=== PATIENT | male | born 1955 | race Caucasian/White ===

== ENCOUNTER 2017-10-22 16:51 | Emergency (ER) | payer OTHER, SELFPAY ==
[2017-10-22 16:51] VITALS: BP 167/97; PULSE 60; RESP 14; TEMP 36.7; O2SAT 99; BMI 26.7
--- NOTE | 2017-10-22 17:15 | XR_ITS ---
XR chest 2V HISTORY: ITS.REASON: dizziness; chest pain ORDERING PHYSICIAN: Jacinto Simmons MD PATIENT AGE: 61 years COMPARISON: None available FINDINGS: The cardiomediastinal silhouette and pulmonary vascularity are within normal limits. No lobar consolidation or collapse. Calcified granuloma lobe. There is mild mid thoracic curvature convex left. On the lateral view there is a 15 x 14 mm nodular opacity overlying the aortic arch not readily apparent on the frontal view. This may be due to an overlapping vessel however, one cannot exclude the possibility of pulmonary nodule. The remaining lungs are clear. IMPRESSION: 1.5 cm nodule versus summation artifact overlying the aortic arch on the lateral view. Consider chest CT for evaluation.
--- NOTE | 2017-10-22 17:24 | CT_ITS ---
CT head/brain wo con HISTORY: Dizziness and near syncope ITS.REASON: DIZZINESS ORDERING PHYSICIAN: Jacinto Simmons MD PATIENT AGE: 61 years COMPARISON: None TECHNIQUE: Axial images obtained without contrast. Brain and bone windows reviewed. FINDINGS: No midline shift, mass effect, intracranial hemorrhage, hydrocephalus, or extra-axial fluid collection is evident. The calvarium has an unremarkable appearance. No mastoid effusion. There is complete opacification of the left maxillary sinus with soft tissue density protruding through the medial wall the left maxillary sinus into the nasal cavity. There is opacification of the left mid to anterior ethmoid air cells and minimal mucosal thickening of the sphenoid sinuses... IMPRESSION: 1. No acute intracranial findings. 2. Opacified left maxillary sinus with extension into the left nasal canal. Possible antrochoanal polyp. Consider CT sinuses for more thorough evaluation. Neoplasm not excluded.
[2017-10-22 17:30] LABS: Basophils # 0.1 K/mm3 (0-0.2); Basophils % 0.9 % (0.1-2.0); Eosinophils # 0.4 K/mm3 (0.0-0.4); Eosinophils % 5.3 % (0.1-12.0); Hematocrit 46.2 % (42.0-52.0); Lymphocytes # 1.5 K/mm3 (0.7-4.5); Lymphocytes % 21.8 K/mm3 (10-50); Mean Corpuscular HGB Conc 32.4 g/dL (31.8-35.4); Mean Corpuscular Hemoglobin 29.5 pg (27.0-31.2); Mean Corpuscular Volume 91.3 fl (80-94); Mean Platelet Volume 9.3 fl (7.4-10.4); Monocytes # 0.6 K/mm3 (0.1-1.0); Monocytes % 8.8 % (1.7-9.3); Neutrophils # 4.3 K/mm3 (1.8-7.8); Neutrophils % 63.3 % (37.0-80.0); Platelet Count 163 K/mm3 (142-424); Red Blood Count 5.06 M/mm3 (4.60-6.20); Red Cell Distribution Width 12.1 % (11.5-17.5); White Blood Count 6.8 K/mm3 (4.8-10.8)
[2017-10-22 18:03] LABS: Alanine Aminotransferase 50 U/L (12-78); Albumin/Globulin Ratio 1.1 (1.1-1.8); Alkaline Phosphatase 95 U/L (46-116); Anion Gap 13.1 mEq/L (5-15); Aspartate Amino Transferase 36 U/L (15-37); Bilirubin,Total 0.4 mg/dL (0.2-1.0); Blood Urea Nitrogen 19 mg/dL (7-18); CKMB Relative Index 1.9 U/L (0-4.0); Calcium 9.2 mg/dL (8.5-10.1); Carbon Dioxide 27 mmol/L (21.0-32.0); Chloride 104 mmol/L (98-107); Creatine Kinase 243 U/L (39-308); Creatine Kinase MB 4.6 mg/ml (0.0-3.6); Creatinine Clearance Estimated 107 mL/min (0-300); Creatinine,Serum 0.77 mg/dL (0.70-1.30); Estimated Glomerular Filt Rate 102 ml/min (>60); GFR (African American) 123 ML/MIN (>60); Globulin 3.7 gm/dl (1.3-3.2); Glucose 112 mg/dL (74-106); Potassium 4.1 mmoL/L (3.5-5.1); Sodium 140 mmol/L (136-145); Total Protein,Serum 7.7 gm/dL (6.4-8.2); Troponin I < 0.02 ng/ml (0.00-0.06)
--- NOTE | 2017-10-22 18:11 | HMH.EDDIZZ ---
ED Disposition Clinical Impression: Inner ear disease, Benign paroxysmal positional vertigo Disposition: Home, Self-Care Condition on Discharge: Fair Instructions: Dizziness, Nonvertigo, Vertigo Prescriptions: Meclizine HCl [Antivert 25mg tablet] 25 mg PO TID 20 Days #60 tab Referrals: Freddie Saucedo [Primary Care Provider] - Time of Disposition: 18:33 - Critical Care Critical Care Time: No Attestation: On 10/22/17, the high probability of a clinically significant, sudden or life threatening deterioration of the following system(s) required my full and direct attention, intervention and personal management. The time I documented below is in addition to time spent performing reported procedures but includes the following listed in this critical care notation. Medical Decision Making - Medical Records Medical records reviewed: Yes: I reviewed the patient's medical records. Vital Signs: 10/22/17 16:51 Temperature 98.1 F Temperature Source Oral Pulse Rate [Right Brachial] 60 Respiratory Rate 14 Blood Pressure [Right Arm] 167/97 Blood Pressure Mean [Right Arm] 120 Blood Pressure Source [Right Arm] Automatic Cuff Blood Pressure Position [Right Arm] Sitting 02 Sat by Pulse Oximetry 99 Oxygen Delivery Method Room Air - Lab Data Lab results reviewed: Yes: I reviewed the patient's lab results. Lab Results 10/22/17 17:25: WBC 6.8, RBC 5.06, Hgb 15.0, Hct 46.2, MCV 91.3, MCH 29.5, MCHC 32.4, RDW 12.1, Plt Count 163, MPV 9.3, Neut % (Auto) 63.3, Lymph % (Auto) 21.8, Calvert % (Auto) 8.8, Eos % (Auto) 5.3, Baso % (Auto) 0.9, Neut # (Auto) 4.3, Lymph # (Auto) 1.5, Calvert # (Auto) 0.6, Eos # (Auto) 0.4, Baso # (Auto) 0.1 10/22/17 17:25: Sodium 140, Potassium 4.1, Chloride 104, Carbon Dioxide 27, Anion Gap 13.1, BUN 19 H, Creatinine 0.77, Estimated Creat Clear 107, Estimated GFR 102, Est GFR ( Amer) 123, Glucose 112 H, Calcium 9.2, Total Bilirubin 0.4, AST 36, ALT 50, Alkaline Phosphatase 95, Total Creatine Kinase 243, CK-MB (CK-2) 4.6 H, CK-MB (CK-2) Rel Index 1.9, Troponin I < 0.02, Total Protein 7.7, Albumin 4.0, Globulin 3.7 H, Albumin/Globulin Ratio 1.1 Result diagrams: 10/22/17 17:25 10/22/17 17:25 Orders (Tests/Meds): ORDERS Category Date Time Status CT Request head Stat Cat Scan 10/22/17 17:[address] head/brain wo con Routine Cat Scan 10/22/17 17:24 Taken Chest XR 2 view (NOT portable) [XR chest 2V] Stat Exams 10/22/17 17:15 Taken - CT Data CT Scan: Head Time Received: 18:[address] Reviewed: Yes: I have reviewed the patient's CT results, I discussed the CT results w/the radiologist, I have viewed the radiologist's interpretation Preliminary Findings: Normal/NAD - Harjinder Inquiry Pt receiving controlled substance: No Harjinder was queried for this patient: No Dizzy HPI - General Chief Complaint: Dizziness Stated Complaint: Dizziness Time Seen by Provider: 10/22/17 18:11 Mode of Arrival: Ambulatory Source of Information: Patient Limitations: No Limitations Description of Symptoms (Recalled from ER Triage Doc. 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 no pain at this time - History of Present Illness HPI Narrative: At work this morning he had a dizzy spell and almost fell but no LOC. Had this happen in past and told he had an ear infection. MD complaint: dizziness Timing: sudden onset Description: lightheadedness History of similar episodes: Yes (treated for an ear infection at that time) History of trauma: No Severity: mild Relieving factors: nothing - Related Data Previous Rx's Medication Instructions Recorded Meclizine HCl [Antivert 25mg 25 mg PO TID 20 Days #60 tab 10/22/17 tablet] Allergies Allergy/AdvReac Type Severity Reaction Status Date / Time
[2017-10-22 18:42] VITALS: BP 150/87; PULSE 60; RESP 14; TEMP 36.8; O2SAT 98
== END 2017-10-22 18:45 | disposition home or self-care (01) ==
PROVIDERS: Emergency Provider General Practice; PCP Family Medicine
DX: H81.10 Benign paroxysmal vertigo, unspecified ear (principal); H83.90 Unspecified disease of inner ear, unspecified ear; E11.9 Type 2 diabetes mellitus without complications
CPT/HCPCS: 70450; 71046; 80053; 82550; 82553; 84484; 85025; 93005; 99283

== ENCOUNTER 2023-01-16 08:50 | Emergency (ER) | payer MEDICARE, SELFPAY ==
[2023-01-16] VITALS (11 sets, daily range): BP systolic 110–175; BP diastolic 60–97; PULSE 52–66; RESP 11–17; TEMP 36.4–36.6; O2SAT 95–98; BMI 27.6
--- NOTE | 2023-01-16 08:50 | ECG_ITS ---
APPROVED REPORT Exam: Resting ECG HR:61 bpm ECG Measurements Heart Rate 61 AXES OK 197 P 55 QRSd 174 QRS 21 QT 448 T 77 QTc 451 Conclusion SINUS RHYTHM LEFT BUNDLE BRANCH BLOCK [120+ ms QRS DURATION, 80+ ms Q/S IN V1/V2, 85+ ms R IN I/aVL/V5/V6] ABNORMAL ECG UNCONFIRMED REPORT Electronically signed by : Honorio Freitas MD 01/16/2023 14:19:17
--- NOTE | 2023-01-16 08:54 | HMH.EDCP ---
Discharge Plan Disposition Patient Disposition: Home, Self-Care Prescriptions Prescriptions: No Action meclizine 25 MG tablet 25 mg PO TID 20 Days Qty: 60 0RF Activity Restrictions/Add. Instructions Additional Instructions/Restrictions: Please follow-up with your primary care doctor in about 2 to 3 days if you are not feeling better. Follow-up with a drug abuse worker within about 1 week even if you do feel better. Your work-up today in the emergency department and not reveal any evidence of heart attack or other life-threatening conditions. Please return to the emergency department if you feel worse in any way. 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 It is not reproducible with movement. The patient has no history of heart attack or blood clot. He has no history of cardiac stents. He states that he has an enlarged heart. The pain is worsened by deep breaths. MD complaint: chest pain Onset (ago): minute(s) (10) Duration: constant Activity at onset: light activity Pain location: right chest Severity: moderate Quality: tightness Relieving factors: nothing RACHEL Score for Non-Stemi Age of Patient: 60-69 years old Heart Rate: 50-69 bpm Systolic Blood Pressure: 120-139 mmhg Serum Creatinine: 0.80-1.19 mg/dl CHF Killip Class: I-No CHF Other Risk Factors: None Non-Stemi Risk Score: 102 Related Data Previous Rx's Medication Instructions Recorded meclizine 25 mg tablet 25 mg PO TID 20 days #60 tabs 10/22/17 Allergies Allergy/AdvReac Type Severity Reaction Status Date / Time No Known Allergies Allergy Verified 10/22/17 17:12 [facility] Disclaimer: The information contained in this section may have been updated after the patient was seen, as this information can be updated by other users. Social History Smoking Status: Former smoker alcohol intake: never current occupational status: retired Travel in the last 8 weeks: None ROS Obtained: Yes All systems reviewed & no additional complaints except as documented Physical Exam General General appearance: alert Head Head exam: atraumatic Eye Eye exam: Present normal appearance ENT ENT exam: Present normal exam Neck Neck exam: Present normal inspection and full ROM; Absent tenderness or meningismus Chest Chest inspection: Present normal inspection and symmetric chest wall rise; Absent tenderness Respiratory Respiratory exam: Present normal lung sounds bilaterally; Absent respiratory distress or accessory muscle use Cardiovascular Cardiovascular exam: Present regular rate, normal rhythm and normal heart sounds Abdominal Exam Abdominal exam: Present soft and normal bowel sounds; Absent distention, tenderness, heel tap sign, Foster's sign, Rovsing's sign, tenderness at McBurney's Point or mass Extremities Exam Extremities exam: Present normal inspection and full ROM; Absent edema or calf tenderness Back Exam Back exam: Present normal inspection; Absent CVA tenderness (R) or CVA tenderness (L) Neurological Exam Neurological exam: Present alert and oriented X3 Psychiatric Psychiatric exam: Present normal affect and normal mood Skin Skin exam: Present warm, dry, intact and normal color Medical Decision Making Harjinder Inquiry Pt receiving controlled substance: No Vital Signs: 01/16/23 08:54 01/16/23 09:00 01/16/23 09:30 Temperature 97.5 F L Temperature Source Oral Pulse Rate 55 L 52 L Pulse Rate [Right] 66 Respiratory Rate 11 L Blood Pressure 156/88 H 110/75 Blood Pressure [Right Arm] 175/97 H
--- NOTE | 2023-01-16 08:54 | PC.NURSE ---
Dr. Cummins at BS for pt eval
--- NOTE | 2023-01-16 09:10 | XR_ITS ---
FINAL REPORT CLINICAL HISTORY: chest pain COMPARISON: 10/22/2017 FINDINGS: A single portable view of the chest was obtained. The heart size and pulmonary vascularity are within normal limits. The mediastinum is within normal limits. No acute pulmonary abnormality is identified. The bony thorax is intact. IMPRESSION: No active cardiopulmonary disease. Reviewed, Interpreted and Dictated by Prince Ch III, MD Transcribed by Marlin Machado Authenticated and [facility]
[2023-01-16 09:16] LABS: Chloride 102 mmol/L (98-107)
[2023-01-16 09:17] LABS: Potassium 4.4 mmoL/L (3.5-5.1); Sodium 137 mmol/L (136-145)
[2023-01-16 09:18] LABS: Basophils # 0.1 K/mm3 (0-0.2); Basophils % 0.7 % (0.1-2.0); Eosinophils # 0.5 K/mm3 (0.0-0.4); Eosinophils % 5.7 % (0.1-12.0); Hemoglobin 13.6 g/dL (14.1-18.0); Lymphocytes # 1.6 K/mm3 (0.7-4.5); Lymphocytes % 18.2 % (10-50); Mean Corpuscular HGB Conc 32.3 g/dL (31.8-35.4); Mean Corpuscular Volume 92.9 fl (80-94); Monocytes # 0.8 K/mm3 (0.1-1.0); Monocytes % 9.4 % (1.7-9.3); Neutrophils # 5.7 K/mm3 (1.8-7.8); Neutrophils % 65.9 % (37.0-80.0); Platelet Count 209 K/mm3 (142-424); Red Blood Count 4.52 M/mm3 (4.60-6.20); Red Cell Distribution Width 12.6 % (11.5-17.5); White Blood Count 8.7 K/mm3 (4.8-10.8)
[2023-01-16 09:19] LABS: Blood Urea Nitrogen 24 mg/dl (9-20)
[2023-01-16 09:20] LABS: Anion Gap 12.4 mEq/L (5-15); Calcium 9.4 mg/dl (8.4-10.2); Carbon Dioxide 27 mmol/L (22.0-30.0); Creatinine Clearance Estimated 102 mL/min (50-200); Estimated Glomerular Filt Rate 84 ml/min (>60); GFR (African American) 101 ML/MIN (>60); Glucose 170 mg/dl (74-100)
[2023-01-16 09:36] LABS: Troponin I < 0.01 ng/ml (0.00-0.034)
--- NOTE | 2023-01-16 09:42 | PC.NURSE ---
JERAMIE Andrade rounded on patient. Call light within reach. Pt requesting no needs at this time, but does report he is feeling better.
--- NOTE | 2023-01-16 09:49 | PC.NURSE ---
rounded on pt no complaints at this time, at bs
--- NOTE | 2023-01-16 10:42 | PC.NURSE ---
JERAMIE Andrade rounding on patient. Pt asking to watch TV. Family at BS. Call light within reach. No other needs at this time.
[2023-01-16 12:50] LABS: Troponin I < 0.01 ng/ml (0.00-0.034)
--- NOTE | 2023-01-16 13:03 | PC.NURSE ---
rounded on pt and let him know labs was back er md was looking over results and he be in to discuss with pt, @ bs
== END 2023-01-16 13:12 | disposition home or self-care (01) ==
PROVIDERS: Emergency Provider Emergency Medicine; PCP Emergency Medicine
DX: R07.89 Other chest pain (principal); Z87.891 Personal history of nicotine dependence
CPT/HCPCS: 36415; 71045; 80048; 84484; 85025; 93005; 99285

== ENCOUNTER → 2023-09-03 08:08 | Outpatient (CLI) | payer MEDICARE, SELFPAY ==
[2023-09-09 23:10] LABS: Free Testosterone (Direct) 19.7 pg/mL (6.6-18.1); Testosterone, Total, LC/MS 658.9 ng/dL (264.0-916.0)
== END ==
PROVIDERS: PCP Emergency Medicine; Visit Provider Urology
DX: E29.1 Testicular hypofunction (principal)
CPT/HCPCS: 36415